=== PATIENT | female | born 1980 | race Caucasian/White ===

== ENCOUNTER 2017-12-20 15:44 | Emergency (ER) | payer OTHER ==
[2017-12-20 16:13] VITALS: BP 104/72
--- NOTE | 2017-12-20 17:52 | UC ---
FLU HPI - HPI Summary HPI Summary: 3 DAYS OF SINUS PRESSURE, DOWLING, COUGH, BODY ACHES, FATIGUE, NAUSEA AND INTERMITTENT SOB. NO FEVER. UTD FLU SHOT. - History of Current Complaint Chief Complaint: UCGeneralIllness Stated Complaint: CONGESTION,SORE THROAT Time Seen by Provider: 12/20/17 17:46 Hx Obtained From: Patient Hx Last Menstrual Period: 12/03/17 Onset/Duration: Gradual Onset, Lasting Days, Still Present Severity Currently: Moderate Severity Initially: Moderate Pain Intensity: 7 Pain Scale Used: 0-10 Numeric Associated Signs & Symptoms: Positive: Myalgia, Cough, Headache. Negative: Fever - Allergy/Home Medications Allergies/Adverse Reactions: Allergies Allergy/AdvReac Type Severity Reaction Status Date / Time No Known Allergies Allergy Verified 12/20/17 16:07 Home Medications: Home Medications Cholecalciferol TAB* [Vitamin D TAB*] 1,000 unit PO DAILY 12/20/17 [History Confirmed 12/20/17] Levothyroxine TAB* [Synthroid TAB*] 50 mcg PO DAILY 12/20/17 [History Confirmed 12/20/17] Omeprazole CAP* [Prilosec CAP* 20 MG] 20 mg PO DAILY 12/20/17 [History Confirmed 12/20/17] PMH/Surg Hx/FS Hx/Imm Hx Previously Healthy: Yes - Surgical History Surgical History: Yes Surgery Procedure, Year, and Place: tubal - Family History Known Family History: Positive: Hypertension Negative: Diabetes - Social History Alcohol Use: Rare Substance Use Type: None Smoking Status (MU): Never Smoked Tobacco Type: Cigarettes Amount Used/How Often: MONTHLY Length of Time of Smoking/Using Tobacco: APPROX 20 YRS Have You Smoked in the Last Year: Yes Review of Systems Constitutional: Fatigue Respiratory: Shortness Of Breath, Cough Cardiovascular: Negative Gastrointestinal: Negative Musculoskeletal: Myalgia Neurological: Headache All Other Systems Reviewed And Are Negative: Yes Physical Exam Triage Information Reviewed: Yes Appearance: No Pain Distress, Well-Nourished, Ill-Appearing - MILD Vital Signs: Initial Vital Signs Temp 97.4 F 12/20/17 16:02 Pulse 63 12/20/17 16:02 Resp 16 12/20/17 16:02 BP 104/72 12/20/17 16:02 Pulse Ox 100 12/20/17 16:02 Vital Signs Reviewed: Yes Eyes: Positive: Conjunctiva Clear ENT: Positive: Hearing grossly normal, Pharynx normal, TMs normal Neck: Positive: Supple, Nontender, No Lymphadenopathy Respiratory Exam: Normal Cardiovascular Exam: Normal Abdomen Description: Positive: Soft Musculoskeletal: Positive: No Edema Neurological: Positive: Alert Psychological: Positive: Age Appropriate Behavior Skin: Negative: rashes Diagnostics - Laboratory Diagnostic Studies Completed/Ordered: FLU NEG Flu Course/Dx - Differential Dx/Diagnosis Provider Diagnoses: ACUTE VIRAL SYNDROME Discharge - Discharge Plan Condition: Stable Disposition: HOME Patient Education Materials: Viral Syndrome (ED) Referrals: David Melendez MD [Primary Care Provider] - If Needed Additional Instructions: FLU SWAB NEGATIVE. YOUR SYMPTOMS ARE LIKELY VIRALLY MEDIATED AND SHOULD RESOLVE ON THEIR OWN WITH TIME. REST, HYDRATE, OTC MEDS NEEDED. SEEK FOLLOW-UP IF YOU ARE NOT IMPROVING OVER THE NEXT 1-2 WEEKS. TRY OTC AFRIN FOR NASAL CONGESTION. OKAY TO USE 2-3 SPRAYS IN EACH NOSTRIL UP TO 2 TIMES DAILY. DO NOT USE FOR MORE THAN 3-4 CONSECUTIVE DAYS TO PREVENT DEVELOPING REBOUND CONGESTION.
== END 2017-12-20 18:19 | disposition home or self-care (01) ==
LOC: UCCORT 15:44
DX: B34.9 Viral infection, unspecified (principal)
CPT/HCPCS: 87502; 99211; G0463

== ENCOUNTER 2018-02-20 15:40 | Emergency (ER) | payer OTHER ==
[2018-02-20 16:25] VITALS: BP 105/79
[2018-02-20] MEDS ORDERED: Albuterol 2.5 MG/3 ML NEB.SOL* (0.083%) INH ONE (16:34)
--- NOTE | 2018-02-20 16:35 | UC ---
UC General HPI - HPI Summary HPI Summary: pt is c/o 3 day hx sore throat, fever, cough and sob. "feels like bronchitis". tmax 102.7 last pm. - History of Current Complaint Chief Complaint: UCGeneralIllness Stated Complaint: ST/NAUSEA Time Seen by Provider: 02/20/18 16:29 Hx Obtained From: Patient Hx Last Menstrual Period: 02/12/18 Onset/Duration: Gradual Onset Timing: Constant Pain Intensity: 0 Associated Signs & Symptoms: Positive: Cough, Fever, SOB - Allergy/Home Medications Allergies/Adverse Reactions: Allergies Allergy/AdvReac Type Severity Reaction Status Date / Time No Known Allergies Allergy Verified 02/20/18 16:25 Home Medications: Home Medications Escitalopram (NF) [Lexapro 10 mg (NF)] 10 mg PO DAILY 02/20/18 [History Confirmed 02/20/18] Fexofenadine (NF) [Carisa (NF)] 60 mg PO DAILY 02/20/18 [History Confirmed 11/09] PMH/Surg Hx/FS Hx/Imm Hx - Additional Past Medical History Additional PMH: allergies Endocrine History: Thyroid Disease Psychological History: Depression - Surgical History Surgical History: Yes Surgery Procedure, Year, and Place: tubal - Family History Known Family History: Positive: Hypertension Negative: Diabetes - Social History Lives: With Family Alcohol Use: None Substance Use Type: None Smoking Status (MU): Former Smoker Type: Cigarettes Amount Used/How Often: MONTHLY Length of Time of Smoking/Using Tobacco: APPROX 20 YRS Have You Smoked in the Last Year: Yes - Immunization History Vaccination Up to Date: Yes Review of Systems Constitutional: Fever Skin: Negative Eyes: Negative ENT: Sore Throat Respiratory: Shortness Of Breath, Cough Cardiovascular: Negative Gastrointestinal: Vomiting Genitourinary: Negative Motor: Negative Neurovascular: Negative Musculoskeletal: Negative Neurological: Negative Psychological: Negative Is Patient Immunocompromised?: No All Other Systems Reviewed And Are Negative: Yes Physical Exam Triage Information Reviewed: Yes Appearance: Well-Appearing Vital Signs: Initial Vital Signs Temp 97.6 F 02/20/18 16:21 Pulse 66 02/20/18 16:21 Resp 18 02/20/18 16:21 BP 105/79 02/20/18 16:21 Pulse Ox 99 02/20/18 16:21 Vital Signs Reviewed: Yes Eyes: Positive: Conjunctiva Clear ENT: Positive: Pharyngeal erythema, TMs normal. Negative: Nasal congestion, Nasal drainage Neck: Positive: Supple, Tenderness @ - peritonsilar nodes with mild tenderness. Respiratory: Positive: Lungs clear, No respiratory distress, Decreased breath sounds Cardiovascular: Positive: RRR, No Murmur Abdomen Description: Positive: Nontender, No Organomegaly, Soft Bowel Sounds: Positive: Present Musculoskeletal: Positive: ROM Intact Neurological: Positive: Alert Psychological: Positive: Age Appropriate Behavior Skin Exam: Normal Diagnostics - Laboratory Diagnostic Studies Completed/Ordered: rapid strep=neg - Radiology No standard instances Xray Interpretation: No Acute Changes Radiology Interpretation Completed By: Radiologist Re-Evaluation - Re-Evaluation Second Eval Re-Evaluation Time: 17:20 Change: Improved - better aeration and pt notes easier to breathe. Course/Dx - Course Course Of Treatment: non toxic, rapid strep=neg, cxr=nad. no antibiotic indicated. - Differential Dx - Multi-Symptom Provider Diagnoses: sore throat, bronchospasm Discharge - Sign-Out/Discharge Documenting (check all that apply): Discharge/Admit/Transfer - Discharge Plan Condition: Stable Disposition: HOME Prescriptions: Albuterol HFA INHALER* [Ventolin HFA Inhaler*] 2 puff INH Q6H #1 mdi Patient Education Materials: Pharyngitis (ED), Bronchospasm (ED) Forms: *Work Release Referrals: David Melendez MD [Primary Care Provider] - 5 Days - Billing Disposition and Condition Condition: STABLE Disposition: HOME
--- NOTE | 2018-02-20 16:52 | RAD ---
HISTORY: Fever, cough, shortness of breath COMPARISONS: None VIEWS: 4: Frontal dual-energy and lateral views of the chest. FINDINGS: CARDIOMEDIASTINAL SILHOUETTE: The cardiomediastinal silhouette is normal. BEATRICE: The beatrice are normal. PLEURA: The costophrenic angles are sharp. No pleural abnormalities are noted. LUNG PARENCHYMA: The lungs are clear. ABDOMEN: The upper abdomen is clear. There is no subphrenic gas. BONES AND SOFT TISSUES: No bone or soft tissue abnormalities are noted. OTHER: None. IMPRESSION: NO ACTIVE CARDIOPULMONARY DISEASE.
== END 2018-02-20 17:30 | disposition home or self-care (01) ==
LOC: UCCORT 15:40
DX: J02.9 Acute pharyngitis, unspecified (principal); J98.01 Acute bronchospasm; Z87.891 Personal history of nicotine dependence
CPT/HCPCS: 71046; 87651; 99212; G0463

== ENCOUNTER 2018-05-14 19:10 | Emergency (ER) | payer OTHER | END 2018-05-14 20:37 | disposition left against medical advice (07) | LOC: UCCORT 19:10 | DX: L08.9 Local infection of the skin and subcutaneous tissue, unspecified (principal); Z53.21 Procedure and treatment not carried out due to patient leaving prior to being seen by health care provider ==

== ENCOUNTER 2018-05-15 15:46 | Emergency (ER) | payer OTHER ==
[2018-05-15 16:14] VITALS: BP 111/65
--- NOTE | 2018-05-15 16:21 | UC ---
Skin Complaint HPI - HPI Summary HPI Summary: Patient presents to urgent care with discomfort and swelling as well as redness of her left great toe. Patient states she had a tingling down ingrown nail approximately 2 weeks ago. Patient states she used scissors and cooperative to pull it out. Patient states over the last 5 days she's had progressive redness. Patient states she's been soaking it in Epsom salts. Patient states she does get some pus out of the lateral aspect of the nail with this. Patient denies fevers or chills. Patient does not have a personal history of immunocompromised states her family members do. Patient is not diabetic. Patient has not taken anything for pain. Patient without any other complaints. Patient states her tetanus was less than 10 years ago. Patient's medications reviewed this visit. - History of Current Complaint Chief Complaint: UCSkin Time Seen by Provider: 05/15/18 16:20 Stated Complaint: LEFT GREAT TOE INFECTION Hx Obtained From: Patient Hx Last Menstrual Period: 04/30/18 ?: No Onset/Duration: Gradual Onset, Lasting Weeks Skin Exposure Onset/Duration: Days Ago Onset Severity: Mild Current Severity: Mild Pain Intensity: 2 - Allergy/Home Medications Allergies/Adverse Reactions: Allergies Allergy/AdvReac Type Severity Reaction Status Date / Time No Known Allergies Allergy Verified 05/15/18 16:14 Home Medications: Home Medications Albuterol HFA INHALER* [Ventolin HFA Inhaler*] 2 puff INH Q6H PRN 05/15/18 [ History Confirmed 05/15/18] Pantoprazole TAB (NF) [Protonix TAB (NF)] 40 mg PO DAILY 05/15/18 [History Confirmed 05/15/18] Review of Systems Constitutional: Negative Skin: Other All Other Systems Reviewed And Are Negative: Yes PMH/Surg Hx/FS Hx/Imm Hx Previously Healthy: Yes - Surgical History Surgical History: Yes Surgery Procedure, Year, and Place: tubal - Family History Known Family History: Positive: Hypertension, Other - Immunocompromised conditions unknown diagnosis Negative: Diabetes - Social History Occupation: Employed Full-time Lives: With Family Alcohol Use: None Substance Use Type: None Smoking Status (MU): Former Smoker Type: Cigarettes Amount Used/How Often: MONTHLY Length of Time of Smoking/Using Tobacco: APPROX 20 YRS Have You Smoked in the Last Year: Yes - Immunization History Vaccination Up to Date: Yes Physical Exam - Summary Physical Exam Summary: Vital Signs Reviewed: Yes A+Ox3, no distress Eyes: Conjunctiva Clear ENT: Hearing grossly normal neck: supple Respiratory: Positive: No respiratory distress, No accessory muscle use Cardiovascular: skin color reflect adequate perfusion Musculoskeletal Exam: FINLEY x 4 without difficulty Neurological: Positive: Alert, ambulatory without difficulty Psychological: Positive: Normal Response To Family Skin: Positive: no rash, no ecchymosis left great toe. Patient with paronychia increase on the lateral aspect. Patient with erythema across the nail bed. No. The discharge with gentle milking of paronychia. No fluctuance. No red streaking. No joint involvement. No erythema or edema to the base of the volar aspect. Triage Information Reviewed: Yes Vital Signs: Initial Vital Signs Temp 97.8 F 05/15/18 16:07 Pulse 64 05/15/18 16:07 Resp 17 05/15/18 16:07 BP 111/65 05/15/18 16:07 Pulse Ox 99 05/15/18 16:07 Course/Dx - Course Course Of Treatment: Patient presents to the urgent care with erythematous great toe and paronychia. Patient states this started after hangnail that she tried to cut. No fluctuance at today's exam. Patient's vital signs are normal. Recommend patient continue Epsom salts soaks. Antibiotic ointment and bandage. Motrin Tylenol for pain. Patient started on Bactrim. Patient given strict return precautions. Patient declined crutches. Patient comfortable with the shoe she is wearing. Patient comfortable in agreement with plan. - Diagnoses Provider Diagnoses: Paronychia Discharge - Sign-Out/Discharge Documenting (check all that apply): Patient Departure - Discharge Plan Condition: Stable Disposition: HOME Prescriptions: Sulfamethox/Trimethoprim DS* [Bactrim DS 800/160 TAB*] 1 tab PO BID #20 tab Patient Education Materials: Paronychia (ED) Referrals: David Melendez MD [Primary Care Provider] - Additional Instructions: - Soak your toe in warm epsom salts 2 times a day for 10 minutes each time - cover with antibiotic ointment and bandaid -Monitor your wound for signs of worsening infection - increased reddness, red streaking, odor, pus - return here of call your doctor with questions or concerns - take antibiotics as prescribed - Okay to alternate ibuprofen (Advil, Motrin) and tylenol every 3hours for pain. Take with food -Keep your arm elevated above the level of your heart - this will help with swelling and throbbing pain - contact your doctor or return here with questions or concerns - Billing Disposition and Condition Condition: STABLE Disposition: Home
== END 2018-05-15 16:52 | disposition home or self-care (01) ==
LOC: UCCORT 15:46
DX: L03.032 Cellulitis of left toe (principal); Z87.891 Personal history of nicotine dependence
CPT/HCPCS: 99212; G0463

== ENCOUNTER 2018-07-25 11:51 | Emergency (ER) | payer BC, OTHER ==
[2018-07-25 13:03] VITALS: BP 112/77
--- NOTE | 2018-07-25 13:32 | UC ---
Abdominal Pain Female HPI - HPI Summary HPI Summary: 38-year-old woman coming in with complaint of left flank and left upper quadrant abdominal pain which started yesterday. The pain is variable. She can 't find a position that makes the pain better. No fevers or chills. The pain at its worse is a 9 out of 10. On initial exam while in the room with the patient her pain was minimal and then it went that up back up to a more severe level. She's had a tubal ligation no surgeries otherwise. She does not feel lightheaded. No change in bowel habits she is not seen any blood in her urine. No history of kidney stones. - History of Current Complaint Chief Complaint: UCGeneralIllness Stated Complaint: LEFT SIDE BACK PAIN Time Seen by Provider: 07/25/18 13:12 Hx Last Menstrual Period: "two weeks ago" Pain Intensity: 0 Allergies/Adverse Reactions: Allergies Allergy/AdvReac Type Severity Reaction Status Date / Time No Known Allergies Allergy Verified 07/25/18 12:58 PMH/Surg Hx/FS Hx/Imm Hx Other GI/ History: no history of kidney stones - Surgical History Surgical History: Yes Surgery Procedure, Year, and Place: tubal - Family History Known Family History: Positive: Hypertension, Other - Immunocompromised conditions unknown diagnosis Negative: Diabetes - Social History Alcohol Use: None Substance Use Type: None Smoking Status (MU): Former Smoker Type: Cigarettes Amount Used/How Often: MONTHLY Length of Time of Smoking/Using Tobacco: APPROX 20 YRS Have You Smoked in the Last Year: Yes - Immunization History Vaccination Up to Date: Yes Review of Systems Constitutional: Negative Skin: Negative Eyes: Negative ENT: Negative Respiratory: Negative Cardiovascular: Negative Gastrointestinal: Other - SEE HPI Genitourinary: Negative Motor: Negative Neurovascular: Negative Musculoskeletal: Negative Neurological: Negative Psychological: Negative Is Patient Immunocompromised?: No All Other Systems Reviewed And Are Negative: Yes Physical Exam Triage Information Reviewed: Yes Appearance: Well-Appearing, Well-Nourished, Pain Distress - MILD TO MODERATE Vital Signs: Initial Vital Signs Temp 97.4 F 07/25/18 12:53 Pulse 60 07/25/18 12:53 Resp 16 07/25/18 12:53 BP 112/77 07/25/18 12:53 Pulse Ox 98 07/25/18 12:53 Vital Signs Reviewed: Yes Eye Exam: Normal ENT Exam: Normal Neck exam: Normal Neck: Positive: Supple, Nontender Respiratory Exam: Normal Respiratory: Positive: Lungs clear, Normal breath sounds, No respiratory distress, No accessory muscle use Cardiovascular Exam: Normal Cardiovascular: Positive: RRR Abdomen Description: Positive: CVA Tenderness (L), Other: - Patient has left flank tenderness to percussion and also left sided abdominal tenderness to palpation. Positive bowel sounds. Bowel Sounds: Positive: Present Musculoskeletal Exam: Normal Musculoskeletal: Positive: Strength Intact Neurological Exam: Normal Neurological: Positive: Alert Psychological Exam: Normal Psychological: Positive: Age Appropriate Behavior Skin Exam: Normal Abd Pain Female Course/Dx - Course Course Of Treatment: With the patient's pain increasing to a 9 out of 10 recommended evaluation in the emergency department now. The patient agreed and is heading over to the emergency department. - Differential Dx/Diagnosis Provider Diagnoses: LEFT ABDOMINAL AND FLANK PAIN Discharge - Sign-Out/Discharge Documenting (check all that apply): Patient Departure All imaging exams completed and their final reports reviewed: No Studies - Discharge Plan Condition: Stable Disposition: HOME-RECOMMEND TO ED Patient Education Materials: Acute Abdominal Pain (ED), Flank Pain (ED) Referrals: David Melendez MD [Primary Care Provider] - Additional Instructions: GO DIRECTLY TO THE EMERGENCY DEPARTMENT FOR FURTHER EVALUATION - Billing Disposition and Condition Condition: STABLE Disposition: Home-Recommend to ED
== END 2018-07-25 13:36 | disposition home health service (06) ==
LOC: UCCORT 11:51
DX: R10.12 Left upper quadrant pain (principal); R10.9 Unspecified abdominal pain
CPT/HCPCS: 99212; G0463